=== PATIENT | female | born 1995 | race Caucasian/White ===

== ENCOUNTER 2021-01-04 02:33 | Inpatient (IN) | payer BC ==
[2021-01-04 02:58] VITALS: BMI 24.5
[2021-01-04] MEDS ORDERED: Fentanyl 4 mcg/Bup 0.1% Cadd 100 ML ONE (03:11)
[2021-01-04] MEDS ORDERED: HYDROcodone/Acetaminophen 5/325 mg Tablet PO PRN ×4 (03:16→14:02)
[2021-01-04] MEDS ORDERED: Lidocaine 1% (PF) 30 ML VIAL SC PRN (03:16)
[2021-01-04] MEDS ORDERED: hydrALAZINE 20 MG/ML VIAL SLOW IVP PRN ×2 (03:16→14:02)
[2021-01-04] MEDS ORDERED: Methylergonovine 0.2 MG/ML VIAL IM PRN (03:16)
[2021-01-04] MEDS ORDERED: NS / Oxytocin 40 units/1000ml 1,000 ML IV PRN (03:16)
[2021-01-04] MEDS ORDERED: Ibuprofen 800 MG TAB PO PRN (03:16)
[2021-01-04] MEDS ORDERED: Ondansetron PF 4 MG/2 ML Vial IVP PRN ×3 (03:16→14:02)
[2021-01-04] MEDS ORDERED: Misoprostol 200 MCG TAB PR PRN (03:16)
[2021-01-04] MEDS ORDERED: Lactated Ringer's 1,000 ML IV SCH (03:30)
[2021-01-04 03:49] LABS: Hemoglobin 12.6 g/dL (12.0-15.5); Mean Corpuscular HGB CONC 30.4 g/dL (32.0-36.0); Mean Platelet Volume 12.3 fl (7.4-10.4); RBC Distribution Width 13.2 % (11.5-14.5); Red Blood Cell (RBC) Count 5.25 10x6/uL (3.90-5.03); White Blood Cell (WBC) Count 9.6 10x3/uL (3.5-10.5)
[2021-01-04 04:13] LABS: Platelet Count 198 10x3/uL (150-450)
[2021-01-04 04:14] LABS: HIV (1/2) Antibody/Antigen Non-Reactive (NonReactive); HIV 1/2 INDEX 0.09 S/CO (<1.00); Hep B Surf Ag Non-Reactive S/CO (NonReactive); Syphilis Antibody Nonreactive (Nonreactive); Syphilis Antibody Index 0.01 S/CO (<1.00 Non-Reactive)
[2021-01-04 04:18] LABS: HBSAg Index 0.26 S/CO (0-0.99)
[2021-01-04] MEDS ORDERED: diphenhydrAMINE 50 MG/ML VIAL IVP PRN (05:10)
[2021-01-04] MEDS ORDERED: Naloxone HCl 0.4 mg/ml Vial IVP PRN ×2 (05:10)
[2021-01-04] MEDS ORDERED: Acetaminophen 325 MG TAB PO PRN (05:10)
[2021-01-04] MEDS ORDERED: Promethazine HCl 25 MG/ML VIAL IM PRN (05:10)
[2021-01-04] MEDS ORDERED: ePHEDrine 50 MG/ML VIAL SLOW IVP PRN (05:10)
[2021-01-04] MEDS ORDERED: Lactated Ringer's 500 ML IV PRN (05:10)
[2021-01-04] MEDS ORDERED: Communication Order-Pharmacy FS SCH (05:15)
[2021-01-04] MEDS ORDERED: Fentanyl 4 mcg/Bupivacaine 0.1% Cassette 100 ML EPIDURAL SCH (05:15)
[2021-01-04] MEDS: Lactated Ringer's 1,000 ML IV SCH ×2 (08:40→14:47)
[2021-01-04] MEDS ORDERED: Fentanyl 100 MCG/2 ML VIAL ONE (09:39)
[2021-01-04] MEDS ORDERED: Acetaminophen 500 MG TAB PO PRN (10:05)
[2021-01-04] MEDS: Lidocaine 1% (PF) 30 ML VIAL ONE ×2 (11:01→11:25)
[2021-01-04] MEDS: NS w/ Oxytocin 30 units 500 ML ONE ×2 (11:16→14:37)
[2021-01-04] MEDS ORDERED: Lidocaine 1% (PF) 30 ML VIAL ONE (11:21)
[2021-01-04] MEDS ORDERED: Misoprostol 200 MCG TAB VAG PRN (14:02)
[2021-01-04] MEDS ORDERED: Bisacodyl 10 MG SUPP PR PRN (14:02)
[2021-01-04] MEDS ORDERED: Milk Of Magnesia 30 ML UDCUP PO PRN (14:02)
[2021-01-04] MEDS ORDERED: Lanolin Ointment 7 GM TUBE TOP PRN (14:02)
[2021-01-04] MEDS ORDERED: Adacel (T-DAP) 0.5 ML SYRINGE IM ONE (14:02)
[2021-01-04] MEDS ORDERED: Benzocaine-Menthol 82.5 ML CAN TOP PRN (14:02)
[2021-01-04] MEDS ORDERED: NS w/ Oxytocin 30 units 500 ML ONE (14:36)
[2021-01-04] MEDS ORDERED: NS w/ Oxytocin 30 units 500 ML IVPB SCH (14:45)
[2021-01-04] MEDS ORDERED: Ibuprofen 800 MG TAB PO SCH (15:00)
[2021-01-04] MEDS ORDERED: Bupivacaine 0.25% HCL 30 ML VIAL ONE (16:45)
[2021-01-04] MEDS ORDERED: Bupivacaine PF 0.5% 30 ML VIAL ONE (16:45)
[2021-01-04 17:08] LABS: SARS-CoV-2 PCR by NAA Not Detected (NotDetected)
[2021-01-04] MEDS: Ferrous Sulfate 325 MG TAB PO SCH (17:15)
[2021-01-04] MEDS: Ibuprofen 100 MG/5 ML UDCUP PO SCH (18:00)
[2021-01-04] MEDS: Docusate Calcium (SURFAK) 240 MG CAP PO SCH (22:15)
[2021-01-05] MEDS: Ibuprofen 100 MG/5 ML UDCUP PO SCH ×2 (01:13→08:58)
[2021-01-05] MEDS ORDERED: Prenatal Vitamin 1 TAB PO SCH (09:00)
[2021-01-05] MEDS: Ferrous Sulfate 325 MG TAB PO SCH (09:03)
[2021-01-05] MEDS: Docusate Calcium (SURFAK) 240 MG CAP PO SCH (09:03)
[2021-01-05 12:02] VITALS: BP 102/64; TEMP 98.2
== END 2021-01-05 13:45 | disposition home or self-care (01) | DRG 807 ==
LOC: CSHLD/OP 02:33 → CSHLD 03:27 → CSHPP 15:41
PROVIDERS: ADMIT Student in an Organized Health Care Education/Training Program; ATTEND Student in an Organized Health Care Education/Training Program
PROC: 10E0XZZ Delivery of Products of Conception, External Approach (ICD-10-PCS; principal; 2021-01-04)
PROC: 0KQM0ZZ Repair Perineum Muscle, Open Approach (ICD-10-PCS; 2021-01-04)
DX: O70.1 Second degree perineal laceration during delivery (principal); Z37.0 Single live birth; Z3A.39 39 weeks gestation of pregnancy; Z20.822 Contact with and (suspected) exposure to COVID-19
CPT/HCPCS: 36415; 51702; 85027; 86780; 86850; 86870; 86900; 86901; 87340; 87389; 87635; 99285; J2001; J2590; S0020; U0003; U0005

== ENCOUNTER 2022-06-15 13:02 | Day surgery (SDC) | payer BC ==
[2022-06-15 13:48] VITALS: BMI 23.9
[2022-06-15] MEDS ORDERED: hydrALAZINE 20 MG/ML VIAL SLOW IVP PRN (14:06)
[2022-06-15] MEDS ORDERED: Lactated Ringer's 1,000 ML IV SCH (14:15)
[2022-06-15] MEDS ORDERED: Metoclopramide HCl 10 MG/2 ML VIAL IVP SCH (15:00)
[2022-06-15] MEDS ORDERED: diphenhydrAMINE 50 MG/ML VIAL IVP SCH (15:15)
[2022-06-15] MEDS ORDERED: diphenhydrAMINE 50 MG/ML VIAL ONE (15:24)
== END 2022-06-15 18:00 | disposition home health service (06) ==
LOC: CSHLD/OP 13:02
PROVIDERS: ATTEND Obstetrics & Gynecology
DX: O21.2 Late vomiting of pregnancy (principal); Z3A.34 34 weeks gestation of pregnancy; O99.891 Other specified diseases and conditions complicating pregnancy; R00.0 Tachycardia, unspecified; O26.893 Other specified pregnancy related conditions, third trimester; E86.0 Dehydration; O99.343 Other mental disorders complicating pregnancy, third trimester; F41.9 Anxiety disorder, unspecified; Z79.899 Other long term (current) drug therapy; Z91.040 Latex allergy status; Z98.890 Other specified postprocedural states
CPT/HCPCS: 96360; 96361; 96375; 99282; J1200; J2765

== ENCOUNTER 2022-07-19 09:47 | Outpatient (CLI) | payer BC | END 2022-07-19 09:48 | disposition home or self-care (01) | LOC: CSHLAB 09:47 | PROVIDERS: ATTEND Nurse Practitioner Family | DX: Z20.822 Contact with and (suspected) exposure to COVID-19 (principal) | CPT/HCPCS: 87811 ==